=== PATIENT | female | born 1975 | race Caucasian/White ===

== ENCOUNTER → 2019-12-12 | Outpatient (CLI) | payer MEDICAID ==
[2019-12-12 07:51] LABS: Basophils % (A) 1 %; Eosinophils # (A) 0.2 k/uL (0-0.7); Eosinophils % (A) 5 %; HCT 38.3 % (34.0-46.0); HGB 12.3 gm/dL (11.4-16.0); Lymphocytes # (A) 1.5 k/uL (1.0-4.8); Lymphocytes % (A) 39 %; MCH 29.5 pg (25.0-35.0); Mean Platelet Volume 7.6; Monocytes # (A) 0.2 k/uL (0-1.0); Monocytes % (A) 6 %; Neutrophils # (A) 1.8 k/uL (1.3-7.7); Neutrophils % (A) 48 %; Platelet Count 217 k/uL (150-450); RBC 4.16 m/uL (3.80-5.40); RDW 12.4 % (11.5-15.5); WBC 3.8 k/uL (3.8-10.6)
[2019-12-12 12:24] LABS: African American GFR (CKD) 120.4 (60.0-200.0); Albumin 4.3 g/dL (3.80-4.90); Albumin/Globulin Ratio 2.26 (1.60-3.17); Anion Gap 8.9 mmol/L (4.00-12.00); BUN/Creat Ratio 18.57 Ratio (12.00-20.00); Calcium 9.5 mg/dL (8.7-10.3); Carbon Dioxide 24.1 mmol/L (21.6-31.8); Chol/HDL Ratio 2.42; Globulin 1.9 g/dL (1.6-3.3); Non-African American GFR(CKD) 103.9 (60.0-200.0); Potassium 4.4 mmol/L (3.5-5.5); Total Bilirubin 0.6 mg/dL (0.3-1.2); Total Protein 6.2 g/dL (6.2-8.2)
[2019-12-12 12:36] LABS: Hemoglobin A1C 5.9 % (4.0-6.0)
== END | disposition home or self-care (01) ==
LOC: LABWHC1 07:00
PROVIDERS: ATTEND Nurse Practitioner Family
DX: E55.9 Vitamin D deficiency, unspecified (principal); Z13.220 Encounter for screening for lipoid disorders; Z13.1 Encounter for screening for diabetes mellitus; Z13.228 Encounter for screening for other metabolic disorders; Z13.0 Encounter for screening for diseases of the blood and blood-forming organs and certain disorders involving the immune mechanism
CPT/HCPCS: 36415; 80053; 80061; 82306; 83036; 84443; 85025

== ENCOUNTER → 2020-08-18 | Outpatient (CLI) | payer MEDICAID ==
--- NOTE | 2020-08-19 12:23 | MM ---
Reason for exam: screening (asymptomatic). Last mammogram was performed 7 years and 8 months ago. History: Patient had first child at age 31. Family history of breast cancer in maternal grandmother at age 70. Took hormonal contraceptives for 5 years. Physical Findings: A clinical breast exam by your physician is recommended on an annual basis and results should be correlated with mammographic findings. MG 3D Screening Mammo W/Cad Bilateral CC and MLO view(s) were taken. Prior study comparison: January 01, 2013, [facility] DIGITAL BILATERAL MAMMOGRAM w/CAD. December 25, 2012, bilateral digital screening mammo w/CAD. The breast tissue is heterogeneously dense. This may lower the sensitivity of mammography. Finding: There is a high density, circumscribed oval mass located 10 cm from the nipple in the 9 o'clock posterior position of the right breast. New finding since January 01, 2013 and December 25, 2012. ASSESSMENT: Incomplete: need additional imaging evaluation, BI-RAD 0 RECOMMENDATION: Ultrasound of the right breast. [facility] will attempt to contact patient to return for ultrasound.
== END | disposition home or self-care (01) ==
LOC: RADMAMWWP 09:23
PROVIDERS: ATTEND Family Medicine
DX: Z12.31 Encounter for screening mammogram for malignant neoplasm of breast (principal); Z80.3 Family history of malignant neoplasm of breast
CPT/HCPCS: 77063; 77067

== ENCOUNTER → 2020-09-28 | Outpatient (CLI) | payer MEDICAID ==
--- NOTE | 2020-09-28 08:31 | USB ---
EXAMINATION TYPE: US breast workup limited RT DATE OF EXAM: 09/28/2020 COMPARISON: 08/18/2020 CLINICAL HISTORY: R92.8 PREVIOUS ABNORMAL MAMMOGRAM. Findings: Targeted right breast ultrasound was performed from 9-12 o'clock. In the right breast at 9:00, there is a 1.0 x 0.6 x 0.8 cm ovoid hypoechoic lesion which corresponds well in size, location and morphology to the asymmetry on mammogram and is probably benign. An incidental lymph node is noted in the right axilla. IMPRESSION: Follow-up ultrasound is recommended for the probably benign lesion in the right breast at 9:00 in 6 [facility]. BI-RADS 3, probably benign.
== END | disposition home or self-care (01) ==
LOC: RADUSWWP 07:39
PROVIDERS: ATTEND Family Medicine
DX: N64.89 Other specified disorders of breast (principal)